=== PATIENT | female | born 1970 ===

== ENCOUNTER → 2018-05-20 06:24 | Day surgery (SDC) | payer OTHER ==
[~2018-05-20 06:24] MED LIST: Buffered Lidocaine 0.9% SYRIN* 5 ML/SYR SYRINGE INTRADERM ONE; Ibuprofen TAB* 600 MG PO PRN; Lidocaine 1%* 5 ML VIAL ONE; Midazolam* 1 MG/ML 5 ML VIAL (5 MG) ONE; Naloxone* 0.4 MG/ML 1 ML VIAL IV PRN; Propofol* 10 MG/ML 20 ML BTL IV PUSH ONE; fentaNYL* 50 MCG/ML 2 ML VIAL (100 MCG VIAL) ONE; oxyCODONE/Acetamin 5/325 MG* TAB PO PRN
[2018-05-20 07:17] LABS: ABS Basophils 0.1 10^3/ul (0-0.2); ABS Eosinophils 0.2 10^3/ul (0-0.6); ABS Lymphocytes 1.4 10^3/ul (1.0-4.8); ABS Monocytes 0.4 10^3/ul (0-0.8); ABS Neutrophils 2.9 10^3/ul (1.5-7.7); ABS Nucleated RBC 0 10^3/ul; Eosinophil % 4.2 % (0-6); Hematocrit 43 % (35-47); Hemoglobin 14.6 g/dl (12.0-16.0); Lymphocyte % 28.4 % (25-47); Mean Corpuscular HGB Conc 34 g/dl (31-36); Mean Corpuscular Hemoglobin 30 pg (27-31); Mean Corpuscular Volume 87 fL (80-97); Mean Platelet Volume 8.3 um3 (7.4-10.4); Nucleated Red Blood Cells % 0.2; Platelet Count 258 10^3/ul (150-450); Red Blood Count 4.95 10^6/ul (4.00-5.40); Red Cell Distribution Width 14 % (10.5-15)
[2018-05-20 09:09] VITALS: BP 129/84
--- NOTE | 2018-05-21 02:49 | OP ---
AMENDED REPORT NOW INCLUDES DATE OF OPERATION - ESIGNED BEFORE ADJUSTMENT * CC: [facility] DATE OF OPERATION: 05/20/18 - SDS DATE OF : 66. SURGEON: Dr. Nix. ANESTHESIOLOGIST: Dr. Stern. ANESTHESIA: Local anesthesia with MAC. PRE-OP DIAGNOSIS: Left vulvar lesion with a wide base. POST-OP DIAGNOSIS: Left vulvar lesion with a wide base. OPERATIVE PROCEDURE: Excision of left vulvar lesion. FINDINGS: A 1.75 cm in length x 1.25 cm in width x 0.75 raised lesion, oval in shape just to the left of the clitoris. Otherwise, the perineum appeared normal. There is no lymphadenopathy. COMPLICATIONS: None. COUNTS: Sponge, lap, and needle count were correct x2. The patient was brought to the recovery room awake and in stable condition. DESCRIPTION OF PROCEDURE: The patient was brought to the operating room. When MAC anesthesia was found to be adequate, the patient was prepped and draped in the usual sterile fashion in the dorsal lithotomy position. A time-out was performed. Approximately 6 cc of 1% lidocaine was instilled and allowed to set. When it was tested the patient could not feel in the area of the lesion. An elliptical shaped excision was done excising the entire lesion and small amount of normal tissues surrounding it. This was sent to pathology. Four interrupted sutures of 4-0 Vicryl were placed. Excellent hemostasis was noted. The Betadine solution was cleaned from the patient's perineum and the patient was brought to recovery room, awake and in stable condition. Sponge, lap and needle count were correct x2. [id number]/[facility] #: [id number] [facility]
== END | disposition home or self-care (01) ==
LOC: OR 06:24
PROVIDERS: ATTEND Obstetrics & Gynecology
DX: D28.0 Benign neoplasm of vulva (principal); E66.9 Obesity, unspecified
CPT/HCPCS: 36415; 85025; 86850; 86900; 86901; 88305; J2250; J2704; J3010